=== PATIENT | male | born 1965 | race Caucasian/White ===

== ENCOUNTER 2017-05-05 21:35 | Observation (INO) ==
[2017-05-05] MEDS: SALINE FLUSH 10ml SYRINGE IVF PRN (21:57)
--- NOTE | 2017-05-05 22:04 | Emergency Department Report ---
Chest Pain HPI - General Chief Complaint: Chest Pain Stated Complaint: Chest Pain Time Seen by Provider: 05/05/17 21:40 - History of Present Illness HPI narrative: 51-year-old gentleman presents with chest pain, onset one hour ago. He has a family history of cardiac disease. Had his first episode of chest pain one week ago was traveling and stopped in an emergency department. They worked him up for 5 or 6 hours and released him. He was sent with nitroglycerin tablets. He saw his family doctor this last week and was started on lisinopril for hypertension and then took his first dose of Lipitor approximately at the onset of this chest pain tonight. He is concerned Lipitor may have caused his chest pain. Pain last week was more of a tingling in his arm and up into his neck and some muscle pressure on the left side chest. Today he has chest pressure a little bit of pain midsternal. This onset at rest. He did take one nitroglycerin at home, it did not resolve and he presented to the emergency department. He does exercise regularly, is in good shape. He does Not smoke tobacco, does not drink alcohol. no nausea, vomiting or diaphoresis at this time. - Related Data Home Medications Medication Instructions Recorded Confirmed Aspirin *EC* [Ecotrin] 1 tab PO DAILY 05/05/17 05/05/17 Atorvastatin Calcium [Atorvastatin 1 tab PO HS 05/05/17 05/05/17 Calcium] Lisinopril [Prinivil] 1 tab PO DAILY 05/05/17 05/05/17 Nitroglycerin [Nitroglycerin] 1 tab SL PRN 05/05/17 05/05/17 Orphenadrine Tab [Norflex] 1 tab PO PRN 05/05/17 05/05/17 Allergies Allergy/AdvReac Type Severity Reaction Status Date / Time hydrocodone AdvReac Intermediate Dizziness Verified 05/05/17 21:58 Review of Systems All systems: reviewed and negative except as stated PFSH Patient Stated Medical History Hypertension Yes Hx Kidney Stones Yes Hypertension, hyperlipidemia. Both recently diagnosed. Surgical History: Melanoma right arm, shoulder separation repair Family History: Coronary artery disease - Social History Smoking status: Never smoker Substance use type: does not use Alcohol intake frequency: does not drink Physical Exam - Limitations Limitations: no limitations - General General appearance: alert, in no apparent distress - Normal Exams: Head:: Normocephalic without trauma Neck:: Full range of motion, without adenopathy, JVD, bruits or thyromegaly Chest/Respirations:: Clear all hernández, with good airflow, and symmetry bilaterally Cardiovascular:: Regular rate and rhythm, without murmur or gallop, Pulses 2+ all extremities, capillary refill, <2 seconds all extremities Abdomen:: Bowel sounds positive, soft, non-tender, non-distended, no hepatosplenomegaly, masses or bruits noted Neurological:: Patient is alert, and oriented, cranial nerves, motor/sensory/ cerebellar, exams w/o gross deficits, to observation Psychiatric:: Patient exhibits, appropriate attention, emotion and affect Course Vital Signs Temperature 98.3 F 05/05/17 21:35 Respiratory Rate 14 05/05/17 21:35 Temperature 98.3 F 05/05/17 21:35 Pulse Rate 48 L 05/05/17 23:14 Respiratory Rate 14 05/05/17 23:14 Blood Pressure 133/72 05/05/17 23:14 Pulse Oximetry 98 05/05/17 23:14 Chest Pain - MDM Narrative Medical decision making narrative: Initial labs negative including CBC, d-dimer and troponin. Chest x-ray is negative and EKG is negative. Patient was given ASA 81 mg 4, IV fluids started and patient was given GI cocktail. The GI cocktail improved his symptoms. Because this is a new, as of yet undiagnosed chest pain, patient is being admitted to observation overnight with repeat cardiac enzymes. He does have a stress test set up with Dr. Block, for next week. Dr. Joseph is on Intal a call for cardiology tonight and will cover if any issues occur overnight. He is aware of the patient. Otherwise patient will be discharged in the morning to follow up with Dr. Block on an accelerated basis. - Lab Data Result diagrams: 05/05/17 21:37 05/05/17 21:37 Lab Results 05/05/17 05/05/17 05/05/17 Range/Units 21:37 21:37 21:37 WBC 9.4 (4.5-11.0) T/MM3 RBC 4.67 (4.50-5.90) M/MM3 Hgb 14.8 (13.5-17.5) GM/DL Hct 43.1 (41-53) % MCV 92.3 (80-100) UM3 MCH 31.7 (26-34) UUG MCHC 34.3 (31-37) GM/DL RDW Std Deviation 39.7 (36.9-50.2) FL Plt Count 232 (130-400) T/MM3 MPV 9.9 (9.4-12.4) UM3 Immature Gran % (Auto) 0.1 (0.0-0.5) % Neut % (Auto) 57.4 (33-66) % Lymph % (Auto) 34.3 (23-45) % Mcmullen % (Auto) 6.0 (0-9.0) % Eos % (Auto) 1.9 (0-4) % Baso % (Auto) 0.3 (0-2) % Neut # 5.4 (1.8-7.7) T/MM3 Lymph # 3.2 (1-4.8) T/MM3 Mcmullen # 0.6 (0-0.8) T/MM3 Eos # 0.2 (0-0.5) T/MM3 Baso # 0.0 (0-0.2) T/MM3 Abs Immat Gran (auto) 0.01 (0.00-0.03) T/MM3 D-Dimer < 150 (0-230) NG/ML Turbidity < 20 (0-20) Sodium 143 (134-144) MEQ/L Potassium 3.9 (3.6-5) MEQ/L Chloride 102 (98-107) MEQ/L Carbon Dioxide 28 (22-30) MEQ/L Anion Gap 13 (5-15) MEQ/L BUN 22.0 H (9-20) MG/DL Creatinine 1.2 (0.8-1.5) MG/DL GFR Calculation 64 BUN/Creatinine Ratio 18 (6-26) RATIO Glucose 96 (75-110) MG/DL Calculated Osmolality 278 (261-280) MOSM/KG Calcium 9.4 (8.4-10.2) MG/DL Total Bilirubin 0.90 (0.20-1.30) MG/DL Icterus Index < 2 (0-7) AST 27 (17-59) U/L ALT 38 (21-72) U/L Alkaline Phosphatase 69 (38-126) U/L Troponin I < 0.012 (0-0.12) ng/ml B-Natriuretic Peptide 11.1 (0-175) pg/mL Total Protein 7.4 (6.3-8.2) G/DL Albumin 4.5 (3.5-5.0) G/DL Globulin 2.9 (2.4-3.6) G/DL Albumin/Globulin Ratio 1.6 (1.1-2.2) RATIO Specimen Hemolysis < 15 (0-25) Disposition Clinical Impression: Chest pain Disposition: 02 To [facility] Condition: Stable Prescriptions: No Action Aspirin *EC* [Ecotrin] 1 tab PO DAILY Atorvastatin Calcium [Atorvastatin Calcium] 1 tab PO HS Orphenadrine Tab [Norflex] 1 tab PO PRN Nitroglycerin [Nitroglycerin] 1 tab SL PRN Lisinopril [Prinivil] 1 tab PO DAILY Referrals: Poncho Escobedo [Family Provider] - Time of Disposition: 23:25 - Seen By: physician
[2017-05-05] MEDS ORDERED: NS 1,000 ML IV ONE (22:07)
[2017-05-05] MEDS ORDERED: GI COCKTAIL 30 ML PO ONE (22:07)
[2017-05-05] MEDS ORDERED: ASPIRIN 81 MG CHEWABLE TABLET PO ONE (22:07)
[2017-05-05] MEDS ORDERED: SALINE FLUSH 10ml SYRINGE IVF PRN (22:07)
[2017-05-05] MEDS ORDERED: NITROGLYCERIN 0.4 MG SUBLINGUAL TABLET SL PRN (22:07)
--- NOTE | 2017-05-05 23:42 | History & Physical Report ---
<Greg Izaguirre - Last Filed: 05/06/17 01:11> History of Present Illness Date: 05/06/17 Chief complaint: chest pain HPI: pleasant 51-year-old male who started having chest pain about a week ago. Was traveling to [place] to deliver his daughter to [employer]. He has been under some stress from this. He stopped at ER in [facility] [place], ruled out and given some Norflex in case musculoskeletal, he has used it 4x at night and slept well. Got home and saw PCP in follow up and referred to CV in [place] (Dr Block) Dr Block ordered EKG, labs (LDL noted to be 179 with normal trigs) and started him on Lipitor, ordered stress test for next week. STarted lisinopril 5 mg in December, started aspirin 2 weeks ago. He exercised todayon treadmill for 30 min and lifted weights wtihout any increase chest pain soa. Took Lipitor and had some chest pain following this. Sternal, mild to moderate in nature. Took NTG felt dizzy/headache. Came to ER , GI cocktail relieved pain / pressure almost completely. in the emergency room he received GI cocktail, aspirin, and is being admitted for serial cardiac enzymes and stress test in AM See ER notes as well [facility] Patient Stated Medical History Hypertension Yes Hx Kidney Stones Yes Surgical History: Melanoma right arm, shoulder separation repair Family History: both parent with CAD/ CABG (in 50s/60s) Grandparents as well. 2 sisters no CAD - Social History Smoking status: Never smoker Alcohol intake frequency: does not drink Household members: spouse Current occupational status: employed Current occupation: [employer] Does patient use chewing tobacco?: No Current residence: Apartment/Private Home Social history: , at bedside. no dirty livin Medications Home Medications Medication Instructions Recorded Confirmed Type Aspirin *EC* [Ecotrin] 1 tab PO DAILY 05/05/17 05/05/17 History Atorvastatin Calcium [Atorvastatin 1 tab PO HS 05/05/17 05/05/17 History Calcium] Lisinopril [Prinivil] 1 tab PO DAILY 05/05/17 05/05/17 History Nitroglycerin [Nitroglycerin] 1 tab SL PRN 05/05/17 05/05/17 History Orphenadrine Tab [Norflex] 1 tab PO PRN 05/05/17 05/05/17 History Allergies Allergy/AdvReac Type Severity Reaction Status Date / Time hydrocodone AdvReac Intermediate Dizziness Verified 05/05/17 21:58 Exam Vital Signs: Temperature 98.3 F 05/05/17 21:35 Pulse Rate 48 L 05/05/17 23:14 Respiratory Rate 14 05/05/17 23:14 Blood Pressure 133/72 05/05/17 23:14 Pulse Oximetry 98 05/05/17 23:14 Oxygen Delivery Method Room Air Height/Weight/BMI: Height 1.88 m Weight 96.2 kg Comments: ER reported normal EKG but not in system yet - Constitutional Present: no acute distress, well nourished, well developed, average body habitus - Routine HEENT Exam Head: Present: normocephalic Eye: Present: EOMI - Routine Respiratory Exam Present: CTA bilaterally. Absent: accessory muscle use - Routine Cardiovascular Exam Present: S1, S2, no murmur - Routine Abdominal Exam Present: soft, normoactive bowel sounds. Absent: tenderness - Routine Extremities Exam Present: no edema Results - Labs CBC & Chem 7: 05/05/17 21:37 05/05/17 21:37 Assessment and Plan (1) Chest pain Current visit: Yes Status: Acute 05/06/17 01:27 rule out, stress test ordered for AM. I dont think needs CV consult unless positive stress test. Agree continue aspirin. May have had advers reaction to Lipitor (GI upset)? Exceedingly pleasant person, (2) HTN (hypertension) Current visit: Yes Status: Acute (3) Hyperlipidemia Current visit: Yes Status: Acute (4) Heartburn Current visit: Yes Status: Acute Hospital Course Summary Disclaimer: The visit summary below is not to be considered part of the above Progress Note. <Paris Bhatti - Last Filed: 05/06/17 17:24> History of Present Illness Date: 05/06/17 [facility] Patient Stated Medical History Hypertension Yes Myocardial Infarction No Diabetes Mellitus Type 1 No Diabetes Mellitus Type 2 No Hx Kidney Stones Yes Exam Vital Signs: Temperature 97.1 F 05/06/17 15:04 Pulse Rate 50 L 05/06/17 16:00 Respiratory Rate 16 05/06/17 15:04 Blood Pressure 127/72 05/06/17 15:04 Pulse Oximetry 98 05/06/17 15:04 Oxygen Delivery Method Room Air Height/Weight/BMI: Height 1.88 m Weight 95.254 kg Body Mass Index 27.4 Results - Labs CBC & Chem 7: 05/05/17 21:37 05/05/17 21:37 Assessment and Plan (1) Chest pain Current visit: Yes Status: Acute (2) HTN (hypertension) Current visit: Yes Status: Acute (3) Hyperlipidemia Current visit: Yes Status: Acute (4) Heartburn Current visit: Yes Status: Acute Assessment and Plan: 05/06/2017-I've reviewed the H&P above by Dr. Izaguirre. Please see my additions below. 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 He states that he sees Dr. Escobedo for primary care and was started on lisinopril for hypertension in December. He also stated that he went hiking in March and they have frequently hiked 5 miles up and then down the mountain at altitude without difficulties but this past March he felt that he was lagging behind everyone which was not normal for him. He states that after dropping his daughter off at college he developed pain in his left arm and chest wall and some numbness in the left hand. He went to an emergency room in [place] and had blood work with normal cardiac enzymes and a normal EKG. When he came back to [place] he notified his primary care doctor who recommended that he follow-up with Dr. Block which she did last Thursday. There he had an EKG and a lipid panel which showed his LDL was elevated at approximately 170. He was then started on Lipitor yesterday. He states that he felt well yesterday and went to work and then worked out on the treadmill and lifting weights and went home and ate dinner. After dinner he was noticing some burning pain in his left chest and some left arm discomfort as well as tingling in the left hand. He took a nitroglycerin and then felt lightheaded. He did not have any associated sweats, nausea or shortness of breath. He presented to the emergency room because he was lightheaded and not feeling well. In the ER he underwent EKG and troponin which was normal. He was given a GI cocktail and chest pain resolved. The hospital service was contacted for admission for rule out [place]. This morning, the patient states that he has occasionally a vague discomfort may be a 1 on a scale of 0-10 but it is very vague in the anterior chest. He stated if he was working he wouldn't even notice it. He has had no shortness of breath. He has had bradycardia through the night down into the 40s and 50s. He denies any lightheadedness. Comprehensive review of systems is negative other than the above in history of present illness Family history significant for coronary disease in his dad at age 55 and his mom at age 70. Past medical history significant for hypertension, kidney stones, melanoma in the right arm treated surgically in 1994, surgery for shoulder separation Social history: The patient is a nonsmoker and nondrinker he is . Medications and allergies were reviewed. Physical exam GEN-alert, oriented, no acute distress HEENT-sclera anicteric, oropharynx is moist NECK-supple CV-regular rate and rhythm CHEST-clear to auscultation bilaterally ABD-soft, nontender, nondistended with positive bowel sounds -no Byrnes EXT-no edema NEURO-no focal deficits SKIN-warm and dry and without rashes CBC was entirely normal, d-dimer is less than 150, per the metabolic is normal other than BUN of 22. BNP is normal Troponin is normal 3 Chest x-ray shows no acute cardiopulmonary disease Impression Chest pain Strong family history of coronary artery disease Hypertension Hyperlipidemia-recently diagnosed and started on Lipitor Possible GERD Plan Stress test today. Discuss with cardiology. Hospital Course Summary Disclaimer: The visit summary below is not to be considered part of the above Progress Note.
[2017-05-06] MEDS ORDERED: ONDANSETRON 4 MG/2 ML INJECTION IVP PRN (00:36)
[2017-05-06] MEDS ORDERED: ACETAMINOPHEN 325 MG TABLET PO PRN (00:36)
[2017-05-06 01:12] VITALS: BMI 27.4
--- NOTE | 2017-05-06 07:54 | XRay Report ---
INDICATION: chest pain PROCEDURE: CHEST 2-VIEWS UPRIGHT (PA & LAT) Encounter: Initial COMPARISON: None FINDINGS: The lungs are clear without evidence of focal abnormal airspace opacity. There is no pleural effusion or pneumothorax. The heart size, mediastinal contours and pulmonary vascularity are within normal limits. There is no significant skeletal abnormality. IMPRESSION: No acute cardiopulmonary disease. .
[2017-05-06] MEDS: ASPIRIN 81 MG CHEWABLE TABLET PO SCH (08:42)
[2017-05-06] MEDS: SALINE FLUSH 10ml SYRINGE IVF PRN ×2 (08:43→21:01)
[2017-05-06] MEDS ORDERED: SALINE FLUSH 10ml SYRINGE ONE (10:02)
[2017-05-06] MEDS ORDERED: REGADENOSON 0.4 MG/5 ML INJECTION IVP ONE (10:02)
[2017-05-06] MEDS ORDERED: LISINOPRIL 5 MG TABLET PO SCH (15:30)
[2017-05-06] MEDS: LISINOPRIL 5 MG PO SCH (15:52)
[2017-05-06] MEDS ORDERED: ATORVASTATIN 20 MG PO SCH (21:00)
[2017-05-06] MEDS ORDERED: MAG-AL + SIM ORAL LIQUID 30ml PO PRN (21:41)
--- NOTE | 2017-05-06 22:20 | Cardiology Consult Note ---
History of Present Illness Consult reason: chest pain History of present illness: Mr. Mckeon is a most present pleasant 51-year-old male without prior known heart disease but with significant personal risk factors as noted below this lead hypertension dyslipidemia and positive family history. His problems really started about a month ago when he went on a hiking trip to [place] for routine thousand foot elevation and did not quite feel himself and they got tired more easily it was a little hard to breathe but so was felt everybody else he doesn't remember getting chest pain at the time. He got back saw his family doctor who placed him on aspirin and referred him for a cardiology appointment he saw Dr. Bernard Block who gave him sublingual nitroglycerin for chest pain and have advised him having a stress nuclear scan which is supposed to happen X week . he just started having chest pain about a week ago described as a pressure in the left upper chest area that radiated to the neck and was associated with some numbness and tingling in the tips of his fingers he correlates it with emotional stress as his been a lot going on aspiration with the stress of her daughter leaving for college. Does not correlate his chest pain with physical exertion. Last evening he went to the gym around 6:45 PM for about 30 minutes and then lifted weights for about 15-20 minutes when he got home was ready for dinner he just started not feeling well is somewhat vague about the time frame but somewhere around 9:15 started spitting some chest pain this time is a little different from his previous pain described more of a burning sensation in the low substernal area. He took one sublingual nitroglycerin and that made him feel worse as he got a headache and felt lightheaded he turned pale and start looking more anxious since his brought him to the emergency room. Adhesions in the nitroglycerin helped his chest pain. He received GI cocktail in ER and that immediately relieved his pain. Due to his risk factors was decided to admit him to rule out [place]. He did not have any associated shortness of breath nausea vomiting or diaphoresis. Denies worsening or relieving factors otherwise. He was ruled out for [place] and proceed with exercise stress nuclear scan came back abnormal with multiple perfusion defects. See report. I was consulted given opinion or any further management it since receiving any as patient started expressing some mild chest pain that he has not told his nurse was 1-2/10 days talked to him and he calmed down by the time of got the nurse to be available pains spontaneously resolved. Appears comfortable laying in bed is at bedside and has no additional symptoms or complaints. Review of Systems Review of systems: Comparison review of systems negative except except as in history of present illness - Constitutional Constitutional: Present: fatigue - Respiratory Respiratory: Absent: dyspnea on exertion PFS Patient Stated Medical History Hypertension Yes Myocardial Infarction No Diabetes Mellitus Type 1 No Diabetes Mellitus Type 2 No Hx Kidney Stones Yes Hypercholesterolemia for which she was just started on Lipitor first dose last night Surgical History: Melanoma right arm, shoulder separation repair Family History Updates: Both her parents with coronary artery disease/CABG in the 50s and 60s gram parents are well 2 sisters without CAD - Social History Smoking status: Never smoker Alcohol intake frequency: does not drink Current occupational status: employed Does patient use chewing tobacco?: No Current residence: Apartment/Private Home Medications Home Medications Medication Instructions Recorded Confirmed Type Aspirin *EC* [Ecotrin] 1 tab PO DAILY 05/05/17 05/05/17 History Atorvastatin Calcium [Atorvastatin 1 tab PO HS 05/05/17 05/05/17 History Calcium] Lisinopril [Prinivil] 1 tab PO DAILY 05/05/17 05/05/17 History Nitroglycerin [Nitroglycerin] 1 tab SL PRN 05/05/17 05/05/17 History Orphenadrine Tab [Norflex] 1 tab PO PRN 05/05/17 05/05/17 History Allergies Allergy/AdvReac Type Severity Reaction Status Date / Time hydrocodone AdvReac Intermediate Dizziness Verified 05/05/17 21:58 Exam Vital signs: Temperature 97.1 F 05/06/17 15:04 Pulse Rate 50 L 05/06/17 16:00 Respiratory Rate 16 05/06/17 15:04 Blood Pressure 127/72 05/06/17 15:04 Pulse Oximetry 98 05/06/17 15:04 Oxygen Delivery Method Room Air - Constitutional no acute distress, well nourished, well developed, cooperative - Routine HEENT Exam Head: Present: normocephalic, atraumatic Eye: Present: EOMI, PERRL ENT: Present: mucous membranes moist - Routine Neck Exam Present: normal carotid upstroke. Absent: JVD, carotid bruit, lymphadenopathy, thyromegaly - Routine Respiratory Exam Present: CTA bilaterally - Routine Cardiovascular Exam Present: RRR, no murmur, S4. Absent: JVD - Routine Abdominal Exam Present: soft, normoactive bowel sounds, non distended, non tender - Routine Extremities Exam Present: normal capillary refill. Absent: cyanosis, clubbing, edema - Routine Back/Spine/Pelvis Exam Back/Spine: Present: full ROM - Routine Skin Exam Present: intact, dry. Absent: cyanosis, erythema - Routine Neurological Exam Present: alert, oriented X3, CN II-XII intact, normal speech. Absent: motor deficit, facial asymmetry - Routine Psychiatric Exam Present: anxious Results 05/05/17 21:37 05/05/17 21:37 Cardiac Enzymes 05/06/17 05/06/17 Range/Units 01:21 10:56 Troponin I < 0.012 < 0.012 (0-0.12) ng/ml Intake and Output 05/06/17 05/06/17 05/06/17 06:59 14:59 22:59 Intake Total 10 / 10 240 / 240 Output Total 650 / 650 760 / 760 Balance -650 / 350 -750 / -750 240 / 240 Intake: Oral 10 / 10 240 / 240 Output: Urine 650 / 650 760 / 760 Other: Urine Appearance Clear Urine Color Yellow Urine Odor Normal Weight 97 kg 95.254 kg Patient Weight 05/07/17 06:59 Weight 95.254 kg EKG interpretations - EKG EKG results cardiology: WNL Hospital Course Summary Disclaimer: The visit summary below is not to be considered part of the above Progress Note. Hospital Course: 05/06/17 22:25 Atypical chest pain Abnormal stress nuclear scan Strong family history of premature CAD Hypertension Dyslipidemia Indication alternatives risks and benefits of heart catheter were fully discussed the patient and in detail and the full agreement and preference proceeded with a heart catheter , we'll set up for tomorrow. Precath orders Her with management Instructed nurse to check on him periodically throughout regarding chest pain and treated with sublingual nitroglycerin when necessary report unresolved or prolonged chest pain Sepsis Assessment - Evaluation Sepsis screening result: No Definite Risk
--- NOTE | 2017-05-07 07:48 | Exercise Nuc Stress Test ---
EXERCISE TREADMILL STRESS NUCLEAR SCAN DATE 05/06/2017 INDICATION Atypical chest pressure. Positive family history. Also, personal history of hypertension and dyslipidemia. PROCEDURE The patient was injected with technetium-99m Myoview dose of 12.5 mCi at rest, then 33.2 mCi was injected at peak exercise. He exercised for 2 minutes post injection. Total duration was 11 minutes and 21 seconds, achieving a peak heart rate of 141 beats per minute which is 83% of age-predicted maximum heart rate. Had hypertensive response to exercise--237/83. That came down in recovery , was trending down. Resting blood pressure was 122/65. Resting heart rate 50 beats per minute. Patient experienced no angina during the stress test. Rest EKG shows sinus rhythm, mild early repolarization, mild bradycardia. During exercise there was no ST depression or elevation diagnostic of ischemia and no arrhythmia. Stress and rest perfusion images were reviewed--abnormal with reduced uptake in the septum of a mild to moderate severity. This extends to the inferior wall without redistribution. There was an area in the inferolateral wall that exhibits reduced uptake of a mild degree. It is estimated to be small to medium in size and exhibits some redistribution suggestive of equivocal reversible ischemia. Gated images show normal wall motion, normal contractility, a preserved LV ejection fraction of 51% on stress images and 56% on rest images. No significant regional wall motion abnormality was identified. Rotatogram does not show any abnormal extracardiac uptake. TID ratio is normal at 1.00. IMPRESSION: 1. Abnormal exercise stress nuclear scan, submaximal, with very good functional capacity. 2. Clinically negative. 3. Electrically negative. 4. Hypertensive response to exercise. 5. Near maximal. The patient achieved 83% of age-predicted maximum heart rate. 6. Scintigraphically abnormal due to predominantly fixed perfusion defect, mild , in the septal wall, extending to the inferior wall. The latter may represent diaphragmatic attenuation artifact versus a fixed defect. In addition, the inferolateral wall exhibits equivocal to mild reversible perfusion defect. 7. Normal LV systolic function. RECOMMENDATION Discussion with the patient regarding further management. Cardiology consultation is recommended. Discussed with Dr. Paris Bhatti. [facility]ENTERRobert
[2017-05-07] MEDS: ASPIRIN 81 MG CHEWABLE TABLET PO SCH (08:07)
[2017-05-07] MEDS: LISINOPRIL 5 MG PO SCH (08:08)
[2017-05-07] MEDS ORDERED: ASPIRIN *EC* 81 MG TABLET PO SCH (09:00)
[2017-05-07] MEDS ORDERED: HEPARIN 1,000 UNITS/500 ML PREMIX (*CVL ONLY*) IV ONE (11:48)
[2017-05-07] MEDS ORDERED: LIDOCAINE 1% (10mg/ml) 30ml SDV INJ ONE (11:48)
[2017-05-07] MEDS ORDERED: MIDAZOLAM 2mg/2ml INJECTION ONE (14:27)
[2017-05-07] MEDS ORDERED: Verapamil 5 MG/2 ML VIAL ONE (14:27)
[2017-05-07] MEDS ORDERED: NITROGLYCERIN 50MG INJECTION IV ONE (14:27)
[2017-05-07] MEDS ORDERED: FentaNYL 100 MCG/2 ML INJECTION ONE (14:27)
[2017-05-07] MEDS ORDERED: HEPARIN 1,000unit/ml INJECTION 10ml ONE (14:28)
[2017-05-07] MEDS ORDERED: NS 1,000 ML ONE (14:41)
[2017-05-07 15:39] VITALS: TEMP 98.4
[2017-05-07] MEDS ORDERED: ATROPINE 1 MG/ML INJECTION IVP PRN (16:52)
[2017-05-07] MEDS ORDERED: MAG-AL + SIM ORAL LIQUID 30ml PO PRN (16:52)
[2017-05-07] MEDS ORDERED: PROMETHAZINE 25 MG INJECTION IVP PRN (16:52)
[2017-05-07] MEDS ORDERED: MORPHINE SULFATE 4 MG SYRINGE IVP PRN ×2 (16:52)
[2017-05-07] MEDS ORDERED: LORazepam 0.5 MG TABLET PO PRN (16:52)
[2017-05-07] MEDS ORDERED: BISACODYL 10 MG SUPPOSITORY RECTALLY PRN (16:52)
[2017-05-07] MEDS ORDERED: ACETAMINOPHEN 325 MG TABLET PO PRN (16:52)
[2017-05-07] MEDS ORDERED: ONDANSETRON 4 MG/2 ML INJECTION IVP PRN (16:52)
[2017-05-07] MEDS ORDERED: HYDROCODONE/APAP 5mg/325mg TABLET PO PRN (16:52)
[2017-05-07] MEDS ORDERED: METOCLOPRAMIDE 10mg/2ml INJECTION IVP PRN (16:52)
[2017-05-07] MEDS ORDERED: RANITIDINE 150 MG TABLET PO PRN (17:01)
[2017-05-07 18:01] VITALS: BP 126/85; PULSE 52; RESP 19; O2SAT 97
--- NOTE | 2017-05-07 18:11 | Discharge Instructions ---
Discharge Plan - Med Rec/Dispo Referrals/Follow Up: Poncho Escobedo [Family Provider] - 1 Week Perry Joseph MD [Physician] - 2 Weeks J[place] [facility] [place], Chest Pain (GEN) Prescriptions: New Ranitidine [Zantac] 150 mg PO BID #30 tablet Continue Aspirin *EC* [Ecotrin] 1 tab PO DAILY Atorvastatin Calcium 1 tab PO HS Orphenadrine Tab [Norflex] 1 tab PO PRN Lisinopril [Prinivil] 1 tab PO DAILY Discontinued Nitroglycerin [Nitroglycerin] 1 tab SL PRN Discharge Instructions/Outpatient Orders: Final Provider Discharge Instructions Location: Determined By Patient - Disposition 01 Discharged Home, Self-Care
--- NOTE | 2017-05-08 11:12 | Cardiac Catheterization Report ---
DATE 05/07/2017 PROCEDURE PERFORMED Transradial left heart catheterization, LV gram, coronary angiogram. INDICATIONS 51-year-old male who presented with acute chest pressure. He has personal risk factors including a family history of premature coronary artery disease, hypertension and dyslipidemia. He had an abnormal exercise stress nuclear scan on 05/06/2017. He was counseled on the role, the indication, alternatives, risks and benefits of heart catheterization. He agreed to proceed. He gave informed consent. NARRATIVE OF PROCEDURE The patient was brought to the cardiac cath laboratory, received IV sedation using Versed 2 mg, fentanyl 50 mcg. Lidocaine was injected by local infiltration in the right wrist. I inserted a 6-Amharic slender sheath using modified percutaneous technique. After aspiration, I injected to the right arm the usual drug combo. Dose was 2.5 mg of verapamil, 3,000 units of heparin and 300 mcg of nitroglycerin. A fluid bolus was given. The above-mentioned procedures were then performed using a [place] catheter. At the conclusion of the study a TR Band was deployed for hemostasis. There was no immediate complication. It did take some extra time to safely cannulate the right coronary artery, given the deep seating of the catheter and its tendency to cannulate the conus branch with dampening of pressure. FINDINGS 1. HEMODYNAMICS: LVEP was normal. There was no pressure gradient across the aortic valve or intracavitary present. 2. CORONARY ANGIOGRAM: Left main coronary artery is large and normal. The LAD is a large vessel, gives origin to diagonal branches. It is angiographically free from any occlusive disease. A large ramus branch is widely patent and free from any occlusive coronary artery disease. Left circumflex artery is a smaller nondominant system that gives origin to a single low OM branch and appears angiographically normal. Right coronary artery is a very large and dominant vessel that is free from any occlusive disease and distally gives an RPDA--an accessory RPDA and PLB branch, all widely patent. LV gram shows normal wall motion, normal systolic function, EF of 65%. IMPRESSION 1. Coronary angiogram shows no occlusive coronary artery disease. 2. Normal hemodynamics and normal LV systolic function. 3. Dominant right coronary artery. CONCLUSION 1. False-positive stress nuclear scan. 2. Noncardiac chest pain likely due to anxiety and GI (GERD). MTDD
== END 2017-05-07 18:25 | disposition home or self-care (01) ==
LOC: ED 21:35 → MED 21:35 → SRG 05-07 15:40
PROVIDERS: ADMIT Pediatrics; ATTEND Internal Medicine